=== PATIENT | male | born 1960 | race Hispanic/Latino ===

== ENCOUNTER → 2019-04-13 | Outpatient (CLI) | payer OTHER ==
--- NOTE | 2019-04-13 10:05 | Diagnostic Imaging Report ---
EXAM: US ABDOMEN COMPLETE DATE: 04/13/2019 8:40 AM INDICATION: Abdominal pain COMPARISON: None TECHNIQUE: Transverse and longitudinal tiwari scale and color doppler sonographic images of the upper abdomen were obtained. FINDINGS: There is no evidence of fluid or masses seen in the area of clinical concern in the right lower quadrant. LIVER 13.8 cm in the right midclavicular line. Normal echogenicity of the liver with normal contour, no masses. SPLEEN 10.0 cm in maximum diameter. Normal echogenicity, no masses. GALLBLADDER No gallbladder wall thickening, distension, stone, or pericholecystic fluid. NEgative reported sonographic Green's sign. Gallbladder wall measures 2 mm. BILE DUCTS No intra nor extra-hepatic biliary dilation. Common bile duct measures 0.3cm PANCREAS: Visualized portions are normal. RIGHT KIDNEY: 10.2 cm Echogenicity: Normal Collecting System: No hydronephrosis Stones: None Cyst/Mass: 3.4 x 1.8 x 2.0 cm lower pole simple cyst. LEFT KIDNEY: 10.0 cm Echogenicity: Normal Collecting System: No hydronephrosis Stones: None Cyst/Mass: None VESSELS: Aorta: Visualized portions are within normal size limits Inferior Vena Cava: Visualized portions are normal Main Portal Vein: 1.2 cm, normal size with hepatopetal flow. FREE FLUID: None IMPRESSION: No sonographic evidence of cholelithiasis or cholecystitis. No hydronephrosis or renal calculi. Right kidney lower pole simple cyst. Signed by: Saray Solorzano MD on 04/13/2019 10:02 AM
== END ==
LOC: US 08:22
PROVIDERS: ATTEND Family Medicine
DX: R10.9 Unspecified abdominal pain (principal); N28.1 Cyst of kidney, acquired
CPT/HCPCS: 76700